=== PATIENT | female | born 1990 | race Caucasian/White ===

== ENCOUNTER 2017-05-18 07:52 | Emergency (ER) | payer MEDICAID ==
[~2017-05-18] VITALS: Ht 170.2 cm; Wt 65.8 kg
--- NOTE | 2017-05-18 08:13 | NUR ---
DR SOLANO AT THE BEDSIDE FOR EVAL AND EXAM.
--- NOTE | 2017-05-18 08:22 | NUR ---
Patient discharged to home in stable conditon. Written and verbal after care instructions given. Patient verbalizes understanding of instructions.
[2017-05-18 08:23] VITALS: BP 140/90
== END 2017-05-18 08:24 | disposition home or self-care (01) ==
LOC: ER 07:52
DX: H92.02 Otalgia, left ear (principal)
CPT/HCPCS: A4663